=== PATIENT | male | born 1995 | race Caucasian/White ===

== ENCOUNTER 2018-03-31 22:18 | Emergency (ER) | payer OTHER, BC ==
[~2018-03-31] VITALS: Ht 172.7 cm; Wt 81.5 kg
[2018-04-01] MEDS ORDERED: PERCOCET 5/31 TABLET PO (01:13)
[2018-04-01 01:25] VITALS: BP 133/94
== END 2018-04-01 01:28 | disposition home or self-care (01) ==
LOC: EME 22:18
PROC: 2W3CX1Z Immobilization of Right Lower Arm using Splint (ICD-10-PCS; principal; 2018-04-01)
DX: S62.336A Displaced fracture of neck of fifth metacarpal bone, right hand, initial encounter for closed fracture (principal); W01.0XXA Fall on same level from slipping, tripping and stumbling without subsequent striking against object, initial encounter; Y99.0 Civilian activity done for income or pay
CPT/HCPCS: 73130; 99281; 99284